=== PATIENT | male | born 1960 | race Caucasian/White ===

== ENCOUNTER → 2016-09-07 | Outpatient (CLI) | payer OTHER ==
[~2016-09-07] MED LIST: DULER200; DULER200 INH; FOLIC ACID1 MG PO; KLONOPIN1 M1 PO; LEVOFLOXACIN500 MG PO; NEXIUM40 MG PO; NORCO 325 MG-51 TAB PO; OSCAL/D,OYSTER250 MG PO; PREDNISONE10 MG PO; PRILOSEC40 MG PO; PROAIR HFA0.09 MG/AC IH; SPIRIVA -- 3018 MCG PO; SYNTHROID0.025 MG PO; SYNTHROID0.1 MG PO; VICODIN 5-3001 EACH PO; VITAMIN D2400 IU PO; VITAMIN D50000 I2 PO; VOLTAREN50 M1 PO; XANAX1 MG PO
== END | disposition home or self-care (01) ==
LOC: MRI 09:39
DX: S92.255A Nondisplaced fracture of navicular [scaphoid] of left foot, initial encounter for closed fracture (principal); S93.402A Sprain of unspecified ligament of left ankle, initial encounter; S96.812A Strain of other specified muscles and tendons at ankle and foot level, left foot, initial encounter; X58.XXXA Exposure to other specified factors, initial encounter; Y93.89 Activity, other specified; Y92.89 Other specified places as the place of occurrence of the external cause; Y99.8 Other external cause status; M19.072 Primary osteoarthritis, left ankle and foot

== ENCOUNTER → 2017-12-09 | Outpatient (CLI) | payer OTHER ==
[2017-12-09 15:35] LABS: BASO # 0.1 10*3/uL (0.0-0.1); EOS # 0.3 10*3/uL (0.0-0.4); EOS % 3.4 % (1.0-4.0); HEMATOCRIT 45.8 % (42.0-52.0); HEMOGLOBIN 15.1 g/dl (14.0-18.0); LYMPH # 2.6 10*3/uL (1.3-4.4); LYMPH % 32.8 % (27.0-41.0); MEAN CELL VOLUME 91.6 fl (80.0-94.0); MEAN CORPUSCULAR HGB 30.2 pg (27.0-31.0); MEAN PLATELET VOLUME 10.2 fl (9.6-12.3); MONO # 0.5 10*3/uL (0.1-1.0); MONO % 6.7 % (3.0-9.0); NEUT # 4.4 10*3/uL (2.3-7.9); NEUT % 55.6 % (47.0-73.0); PLATELET COUNT AUTOMATED 211 10*3/uL (130-400); RED CELL DISTRI WIDTH 14.2 % (0-14.5); WHITE BLOOD COUNT 7.9 10*3/uL (4.8-10.8)
[2017-12-09 15:53] LABS: BUN 23 mg/dl (7-24); CHLORIDE 105 mmol/L (98-107); CHOLESTEROL 193 mg/dL (<200); CREATININE 1.16 mg/dL (0.70-1.30); HDL CHOLESTEROL 53 mg/dl (40-60); LDL CHOLESTEROL 125 mg/dL (9-159); POTASSIUM 4.8 mmol/L (3.5-5.1); SODIUM 139 mmol/L (136-145); TRIGLYCERIDES 76 mg/dl (<150); VLDL CHOLESTEROL 15 mg/dL (6-40)
[2017-12-09 15:59] LABS: THYROID STIM HORMONE (HS) 0.354 uIU/ml (0.358-4.75)
== END | disposition home or self-care (01) ==
LOC: LAB 14:32
PROVIDERS: Family Medicine
DX: E03.9 Hypothyroidism, unspecified (principal); J44.1 Chronic obstructive pulmonary disease with (acute) exacerbation